=== PATIENT | male | born 1965 | race Caucasian/White ===

== ENCOUNTER 2020-03-08 18:44 | Emergency (ER) | payer MEDICAID ==
[~2020-03-08] VITALS: Ht 154.9 cm; Wt 81.9 kg
[~2020-03-08 18:44] MED LIST: AMIO200T61 PO; CHLO25CA10 PO; DILT360C18 PO; FOLI1TAB16 PO; METO50TA16 PO; MULT-1179 PO; NICO-687 TD; THI100T PO
[2020-03-08 18:49] VITALS: BP 126/78
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
--- NOTE | 2020-03-08 19:00 | NUR ---
ANDREY FRIEND [phone]
--- NOTE | 2020-03-08 20:01 | NUR ---
Called Chaz Lam per pt request. Left message
[2020-03-08] MEDS ORDERED: oxymetazoline 15 ML nasal spray NS ONE (21:05)
--- NOTE | 2020-03-08 21:11 | NUR ---
pt cleared by for removal of C Collar. Pt verbalized irritation at lack of television and food. Pt was given sandwich.
[2020-03-08] MEDS ORDERED: acetaminophen 325mg tablet PO ONE (21:20)
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
== END 2020-03-08 22:44 | disposition home or self-care (01) ==
LOC: ER 18:44
DX: S02.2XXA Fracture of nasal bones, initial encounter for closed fracture (principal); I48.91 Unspecified atrial fibrillation; I50.9 Heart failure, unspecified; F17.200 Nicotine dependence, unspecified, uncomplicated; Z79.899 Other long term (current) drug therapy; Y09 Assault by unspecified means
CPT/HCPCS: 70450; 70486; 72125; 99285

== ENCOUNTER 2020-03-10 23:05 | Emergency (ER) | payer MEDICAID ==
[~2020-03-10] VITALS: Ht 177.8 cm; Wt 79.5 kg
[2020-03-10 23:07] VITALS: BP 137/84
[2020-03-10] MEDS ORDERED: ondansetron/PF 4mg/2ml inj IV ONE (23:20)
[2020-03-10] MEDS ORDERED: pantoprazole 40 MG vial IV ONE (23:20)
[2020-03-10] MEDS ORDERED: normal saline 1000ML IV soln IVB ONE (23:20)
[2020-03-10 23:42] LABS: WHITE BLOOD COUNT 7.5 X10'3 (4.5-11.0)
[2020-03-10 23:43] LABS: BASOPHILS # (AUTO) 0.1 X10'3 (0-0.2); EOSINOPHILS # (AUTO) 0.2 X10'3 (0-0.9); EOSINOPHILS % (AUTO) 2.1 % (0-6); HEMATOCRIT 39.1 % (42.0-52.0); LYMPHOCYTES # (AUTO) 1.6 X10'3 (1.1-4.8); LYMPHOCYTES % (AUTO) 20.8 % (21-51); MEAN CORPUSCULAR HEMOGLOBIN 32.9 PG (27.0-31.0); MEAN CORPUSCULAR HGB CONC 33.3 g/dL (33.0-36.5); MEAN CORPUSCULAR VOLUME 98.7 FL (78-98); MEAN PLATELET VOLUME 7.6 FL (7.4-10.4); MONOCYTES # (AUTO) 0.6 X10'3 (0-0.9); MONOCYTES % (AUTO) 8.2 % (2-12); NEUTROPHILS # (AUTO) 5.1 X10'3 (1.8-7.7); NEUTROPHILS % (AUTO) 67.9 % (42-75); PLATELET COUNT 186 X10'3 (140-440); RED BLOOD COUNT 3.96 X10'6 (4.70-6.10); RED CELL DISTRIBUTION WIDTH 18.4 % (11.5-14.5)
[2020-03-10 23:56] LABS: ALANINE AMINOTRANSFERASE 24 U/L (12-78); ALBUMIN 3.3 G/DL (3.4-5.0); ALBUMIN/GLOBULIN RATIO 1.1 (1.1-1.5); ALKALINE PHOSPHATASE 84 IU/L (46-116); ANION GAP 13 (8-16); ASPARTATE AMINO TRANSFERASE 39 U/L (10-37); BILIRUBIN,TOTAL 0.4 MG/DL (0.1-1.0); BLOOD UREA NITROGEN 17 MG/DL (7-18); BUN/CREATININE RATIO 12.8 (5.4-32.0); CALCIUM 8.2 MG/DL (8.5-10.1); CHLORIDE 107 MMOL/L (99-107); CREATININE 1.33 MG/DL (0.60-1.10); GLUCOSE 87 MG/DL (70-104); LIPASE 152 U/L (73-393); POTASSIUM 3.8 MMOL/L (3.5-5.1); SODIUM 140 MMOL/L (135-145); TOTAL CARBON DIOXIDE 20.2 MMOL/L (24-32); TOTAL PROTEIN 6.4 G/DL (6.4-8.2); eGFR 56 ML/MIN
[2020-03-11] MEDS ORDERED: PANT-47 PO (00:06)
[2020-03-11] MEDS ORDERED: famotidine 20mg tablet ONE (07:21)
[2020-03-11] MEDS ORDERED: metoclopramide 10mg tablet ONE (07:21)
[2020-03-11] MEDS ORDERED: LIDOcaine Viscous 15ml cup ONE (07:22)
[2020-03-11] MEDS ORDERED: mag hydrox/Alum hydrox/simeth 30ml oral suspension ONE (07:22)
== END 2020-03-11 00:32 | disposition home or self-care (01) ==
LOC: ER 23:05
DX: R10.13 Epigastric pain (principal); I48.91 Unspecified atrial fibrillation; I11.0 Hypertensive heart disease with heart failure; I50.9 Heart failure, unspecified; E11.9 Type 2 diabetes mellitus without complications; F17.200 Nicotine dependence, unspecified, uncomplicated; Z72.89 Other problems related to lifestyle; Z79.899 Other long term (current) drug therapy
CPT/HCPCS: 36415; 80053; 83690; 85025; 93005; 96374; 96375; 99284; C9113; J2405; J7030; J8597

== ENCOUNTER 2020-03-11 06:42 | Emergency (ER) | payer MEDICAID ==
[~2020-03-11] VITALS: Ht 170.2 cm; Wt 177.0 kg
[~2020-03-11 06:42] MED LIST changes: +PANT-47 PO
[2020-03-11] MEDS ORDERED: famotidine 20mg tablet PO ONE (07:10)
[2020-03-11] MEDS ORDERED: LIDOcaine Viscous 15ml cup MM ONE (07:10)
[2020-03-11] MEDS ORDERED: metoclopramide 10mg tablet PO ONE (07:10)
[2020-03-11] MEDS ORDERED: mag hydrox/Alum hydrox/simeth 30ml oral suspension PO ONE (07:10)
[2020-03-11 08:26] VITALS: BP 115/76
== END 2020-03-11 08:27 | disposition home or self-care (01) ==
LOC: ER 06:43
DX: K52.9 Noninfective gastroenteritis and colitis, unspecified (principal); I48.91 Unspecified atrial fibrillation; I11.0 Hypertensive heart disease with heart failure; I50.9 Heart failure, unspecified; E11.9 Type 2 diabetes mellitus without complications; Z72.89 Other problems related to lifestyle; Z79.899 Other long term (current) drug therapy
CPT/HCPCS: 74176; 99284; J8597